=== PATIENT | female | born 1975 | race Caucasian/White ===

== ENCOUNTER → 2017-01-22 | Outpatient (CLI) | payer MEDICARE ==
--- NOTE | 2017-01-22 09:40 | REP ---
Chest two views HISTORY: Paresthesias Comparison: None The lungs are clear. The heart is normal in size. The pulmonary vasculature is normal in appearance. The bony structure is intact. IMPRESSION: No acute disease. Signed by Dominick Winn MD 01/22/2017 09:31 A
== END ==
LOC: M RAD 09:05
PROVIDERS: ATTEND Psychiatry & Neurology Neurology
DX: R20.2 Paresthesia of skin (principal)

== ENCOUNTER → 2017-02-24 | Outpatient (CLI) | payer MEDICARE ==
--- NOTE | 2017-02-24 16:15 | REP ---
LEFT UPPER EXTREMITY DUPLEX DOPPLER ARTERIAL ULTRASOUND: Real-time ultrasound evaluation and duplex Doppler interrogation of the left upper extremity arterial system is performed. Peak systolic velocity in the common carotid artery is 136 cm/s with normal wave form. Peak systolic velocity left vertebral artery 66 cm/s with normal wave form . Peak systolic velocity left subclavian artery 129 cm/s with normal wave form, with no significant change with the arm elevated. In the distal left subclavian artery peak systolic velocity 108 cm/s, decreases to 32 cm/s with the arm elevated. Left axillary peak systolic velocity 72 cm/s, decreases to 45 cm/s with the arm elevated. There are normal flow velocities in the left brachial, radial and ulnar arteries with triphasic wave forms noted except in the distal left radial artery which demonstrates monophasic wave form. There is no compelling duplex Doppler sonographic evidence of hemodynamically significant stenosis involving the left upper extremity. Arterial system however given the decrease in velocity in the distal left subclavian artery and axillary artery with the arm elevated, findings raise the possibility of thoracic outlet syndrome. Signed by Nir Carreno MD 02/24/2017 06:00 P
== END ==
LOC: M RAD 13:09
PROVIDERS: ATTEND Surgery Vascular Surgery
DX: I73.9 Peripheral vascular disease, unspecified (principal)

== ENCOUNTER → 2017-03-24 | Outpatient (CLI) | payer MEDICARE ==
[~2017-03-24] MED LIST: PROHANCE 279.3MG/ML 15ML VIAL (A9576) As Ordered
== END ==
LOC: M RAD 14:35
DX: M54.14 Radiculopathy, thoracic region (principal)
CPT/HCPCS: A9576

== ENCOUNTER 2017-04-29 08:02 | Inpatient (IN) | payer MEDICARE ==
[2017-04-29] MEDS ORDERED: LIDOCAINE 1% MDV 20ML VIAL SQ (08:30)
[2017-04-29 08:31] LABS: CONTROL LINE UCG INT CTR LINE PRESENT; URINE PREG TEST NEGATIVE (NEGATIVE)
[2017-04-29] MEDS ORDERED: ceFAZolin 2 GM/D5W 50 ML IV BAG (J0690 PER 500MG) As Ordered (08:51)
[2017-04-29] MEDS ORDERED: METOCLOPRAMIDE INJ 10MG/2ML VIAL (J2765) As Ordered ×2 (09:05→13:58)
[2017-04-29] MEDS ORDERED: LIDOCAINE 2% INJ 100 MG/5 ML SDV (FOR ANES.) As Ordered (09:05)
[2017-04-29] MEDS ORDERED: MIDAZOLAM INJ 2 MG/2 ML VIAL (J2250) As Ordered (09:05)
[2017-04-29] MEDS ORDERED: ROCURONIUM BROMIDE 50 MG/5 ML VIAL As Ordered (09:05)
[2017-04-29] MEDS ORDERED: ONDANSETRON 4MG/2ML VIAL (J2405) As Ordered ×2 (09:05→13:47)
[2017-04-29] MEDS ORDERED: PROPOFOL 200 MG/20 ML VIAL As Ordered (09:05)
[2017-04-29] MEDS ORDERED: fentaNYL 100 MCG/2 ML INJECTION (J3010) As Ordered ×2 (09:05→10:16)
[2017-04-29] MEDS: LR 1,000 ML IV ×2 (09:13→14:00)
[2017-04-29] MEDS: HEPARIN SOD (PORCINE) 5000 UNITS/ML VIAL As Ordered (10:17)
[2017-04-29] MEDS: THROMBIN SOLN 20,000 UNITS KIT As Ordered (11:00)
[2017-04-29] MEDS ORDERED: HEPARIN SOD (PORCINE) 5000 UNITS/ML VIAL As Ordered (11:18)
[2017-04-29] MEDS ORDERED: HYDROmorphone HCL 2 MG/ML 1ML VIAL (J1170) As Ordered (11:47)
[2017-04-29] MEDS: LIDOCAINE 1% SDV INJ 30 ML VIAL As Ordered (13:48)
[2017-04-29] MEDS: BUPIVACAINE HCL 0.25% 30 ML VIAL As Ordered (13:48)
[2017-04-29] MEDS: PROTAMINE SULF INJ 50 MG/5 ML VIAL (J2720) As Ordered (13:49)
[2017-04-29] MEDS ORDERED: HYDROmorphone HCL 1 MG/ML SYRINGE (J1170) IV (14:00)
[2017-04-29] MEDS ORDERED: PERCOCET 5MG/325MG TAB PO (14:00)
[2017-04-29] MEDS ORDERED: dexameTHASONE 4 MG/ML 1ML VIAL (J1100) As Ordered (14:00)
[2017-04-29] MEDS: ONDANSETRON 4MG/2ML VIAL (J2405) IV ×2 (14:00→17:59)
[2017-04-29] MEDS: METOCLOPRAMIDE INJ 10MG/2ML VIAL (J2765) IV (14:10)
[2017-04-29] MEDS ORDERED: MORPHINE 4 MG/ML 1ML VIAL (J2270) IV (14:15)
[2017-04-29] MEDS: fentaNYL 100 MCG/2 ML INJECTION (J3010) IV (14:20)
[2017-04-29] MEDS ORDERED: diphenhydrAMINE INJ 50MG/ML VIAL (J1200) IV (15:30)
[2017-04-29] MEDS: D5W/LR 1,000 ML IV ×2 (16:13→21:50)
[2017-04-29] MEDS: MORPHINE 4 MG/ML 1ML VIAL (J2270) IV (16:35)
[2017-04-29] MEDS: HEPARIN SOD (PORCINE) 5000 UNITS/ML VIAL SC (20:16)
[2017-04-29] MEDS: DOCUSATE SODIUM 100 MG CAP PO (20:17)
[2017-04-29] MEDS: SENOKOT S TAB PO (20:17)
[2017-04-29] MEDS: SCOPOLAMINE 1MG TRANSDERMAL PATCH TOP (20:17)
[2017-04-29] MEDS: NORCO, ANEXSIA 5/325MG TABLET (HYDROcodone/ACETAMINOPHEN) PO (21:51)
[2017-04-30] MEDS: NORCO, ANEXSIA 5/325MG TABLET (HYDROcodone/ACETAMINOPHEN) PO ×5 (03:33→23:24)
[2017-04-30] MEDS: D5W/LR 1,000 ML IV (06:33)
[2017-04-30] MEDS: HEPARIN SOD (PORCINE) 5000 UNITS/ML VIAL SC ×3 (06:33→21:01)
[2017-04-30] MEDS: DOCUSATE SODIUM 100 MG CAP PO ×2 (07:40→21:02)
[2017-04-30] MEDS: SENOKOT S TAB PO ×2 (07:42→21:01)
[2017-04-30 12:25] LABS: BASO % 0.2 % (0.0-1.0); EOS % 0.2 % (0.0-3.0); HEMATOCRIT 32.2 % (36.0-47.0); HEMOGLOBIN 10.9 g/dl (12.0-16.0); IMMATURE GRANULOCYTE % 0.3 % (0-3.0); LYMPH % 21.9 % (24.0-44.0); MEAN CORPUSCULAR HEMOGLOBIN 32.3 pg (27.0-33.0); MEAN CORPUSCULAR HGB CONC 33.9 g/dl (32.0-36.5); MEAN CORPUSCULAR VOLUME 95.5 fl (80.0-96.0); MONO % 10.8 % (0.0-5.0); NEUTROPHILS % 66.6 % (36.0-66.0); PLATELET COUNT, AUTOMATED 187 10^3/uL (150-450); RED BLOOD COUNT 3.37 10^6/uL (4.00-5.40); RED CELL DISTRIBUTION WIDTH 12.5 % (11.5-14.5); WHITE BLOOD COUNT 9.1 10^3/uL (4.0-10.0)
[2017-04-30 12:57] LABS: ANION GAP 6 MEQ/L (8-16); BLOOD UREA NITROGEN 6 MG/DL (7-18); CALCIUM LEVEL 8.5 MG/DL (8.5-10.1); CARBON DIOXIDE LEVEL 29 MEQ/L (21-32); CHLORIDE LEVEL 107 MEQ/L (98-107); GLOMERULAR FILTRATION RATE > 60.0 (>60); GLUCOSE, FASTING 79 MG/DL (70-100); POTASSIUM SERUM 3.7 MEQ/L (3.5-5.1); SODIUM LEVEL 142 MEQ/L (136-145)
[2017-04-30] MEDS: MOM 30ML SUSPENSION UDC PO (21:01)
[2017-05-01] MEDS: NORCO, ANEXSIA 5/325MG TABLET (HYDROcodone/ACETAMINOPHEN) PO ×5 (03:27→23:24)
[2017-05-01] MEDS: HEPARIN SOD (PORCINE) 5000 UNITS/ML VIAL SC ×3 (05:33→21:17)
[2017-05-01] MEDS: ONDANSETRON 4MG/2ML VIAL (J2405) IV ×2 (05:33→05:37)
[2017-05-01] MEDS: ONDANSETRON 4 MG ORAL DISINTEGRATING TAB (S0181) PO (06:12)
[2017-05-01] MEDS: SENOKOT S TAB PO ×2 (08:44→21:17)
[2017-05-01] MEDS: DOCUSATE SODIUM 100 MG CAP PO ×2 (08:44→21:17)
[2017-05-01] MEDS: METAMUCIL (PSYLLIUM) PACKET PO (09:39)
[2017-05-01] MEDS: guaiFENesin ER 600 MG TAB PO ×2 (12:36→21:17)
[2017-05-02] MEDS: MOM 30ML SUSPENSION UDC PO (02:03)
[2017-05-02] MEDS: BISACODYL 10 MG SUPP PR (02:56)
[2017-05-02] MEDS: HEPARIN SOD (PORCINE) 5000 UNITS/ML VIAL SC ×3 (05:33→21:20)
[2017-05-02] MEDS: NORCO, ANEXSIA 5/325MG TABLET (HYDROcodone/ACETAMINOPHEN) PO ×3 (07:21→18:55)
[2017-05-02] MEDS: guaiFENesin ER 600 MG TAB PO ×2 (07:22→21:19)
[2017-05-02] MEDS: DOCUSATE SODIUM 100 MG CAP PO ×2 (07:22→21:20)
[2017-05-02] MEDS: SENOKOT S TAB PO ×2 (07:22→21:20)
[2017-05-02] MEDS: SCOPOLAMINE 1MG TRANSDERMAL PATCH TOP (21:21)
[2017-05-03] MEDS: NORCO, ANEXSIA 5/325MG TABLET (HYDROcodone/ACETAMINOPHEN) PO ×5 (00:46→23:15)
[2017-05-03] MEDS: HEPARIN SOD (PORCINE) 5000 UNITS/ML VIAL SC ×3 (05:10→21:35)
[2017-05-03] MEDS: DOCUSATE SODIUM 100 MG CAP PO ×2 (08:16→21:32)
[2017-05-03] MEDS: guaiFENesin ER 600 MG TAB PO ×2 (08:16→21:32)
[2017-05-03] MEDS: SENOKOT S TAB PO ×2 (08:16→21:32)
[2017-05-03] MEDS: METAMUCIL (PSYLLIUM) PACKET PO (13:51)
[2017-05-04] MEDS: HEPARIN SOD (PORCINE) 5000 UNITS/ML VIAL SC ×3 (05:18→21:43)
[2017-05-04] MEDS: NORCO, ANEXSIA 5/325MG TABLET (HYDROcodone/ACETAMINOPHEN) PO ×4 (05:20→21:44)
[2017-05-04] MEDS: SENOKOT S TAB PO (09:44)
[2017-05-04] MEDS: DOCUSATE SODIUM 100 MG CAP PO (09:44)
[2017-05-04] MEDS: guaiFENesin ER 600 MG TAB PO ×2 (09:44→21:43)
[2017-05-04] MEDS: METAMUCIL (PSYLLIUM) PACKET PO (11:05)
[2017-05-05] MEDS: NORCO, ANEXSIA 5/325MG TABLET (HYDROcodone/ACETAMINOPHEN) PO ×3 (02:31→15:15)
[2017-05-05] MEDS: HEPARIN SOD (PORCINE) 5000 UNITS/ML VIAL SC ×2 (06:35→14:41)
[2017-05-05] MEDS: ONDANSETRON 4 MG ORAL DISINTEGRATING TAB (S0181) PO ×2 (08:13→15:52)
[2017-05-05] MEDS: guaiFENesin ER 600 MG TAB PO (08:13)
[2017-05-05] MEDS: METAMUCIL (PSYLLIUM) PACKET PO (08:13)
[2017-05-05] MEDS: MOM 30ML SUSPENSION UDC PO (08:14)
[2017-05-05] MEDS: BISACODYL 10 MG SUPP PR (14:40)
== END 2017-05-05 19:50 | disposition home or self-care (01) | DRG 30 ==
LOC: M OR 08:02 → M MSPAV 16:17
PROC: 0PT10ZZ Resection of 1 to 2 Ribs, Open Approach (ICD-10-PCS; principal; 2017-04-29 09:26)
DX: G54.0 Brachial plexus disorders (principal); Z87.891 Personal history of nicotine dependence

== ENCOUNTER 2018-03-28 18:05 | Emergency (ER) | payer MEDICARE ==
[~2018-03-28] VITALS: Ht 170.2 cm; Wt 74.1 kg
[~2018-03-28 18:05] MED LIST changes: +GABA PO; +MAGN500T2 PO; +NORCOTAB PO; +ONDA4TAB6 PO; -PROHANCE 279.3MG/ML 15ML VIAL (A9576) As Ordered
[2018-03-28 18:42] LABS: BASO % 0.4 % (0.0-1.0); EOS # 0.1 10^3/uL (0.0-0.50); HEMATOCRIT 43.5 % (36.0-47.0); HEMOGLOBIN 14.5 g/dl (12.0-15.5); LYMPH % 24.2 % (24.0-44.0); MEAN CORPUSCULAR HEMOGLOBIN 32.5 pg (27.0-33.0); MEAN CORPUSCULAR HGB CONC 33.3 g/dl (32.0-36.5); MEAN CORPUSCULAR VOLUME 97.5 fl (80.0-96.0); MONO # 0.5 10^3/uL (0.0-0.8); MONO % 6.6 % (0.0-5.0); NEUTROPHILS # 5.5 10^3/uL (1.8-7.7); NEUTROPHILS % 67.4 % (36.0-66.0); PLATELET COUNT, AUTOMATED 268 10^3/uL (150-450); RED BLOOD COUNT 4.46 10^6/uL (4.00-5.40); WHITE BLOOD COUNT 8.2 10^3/uL (4.0-10.0)
[2018-03-28 18:56] LABS: HCG, SERUM QUALITATIVE NEGATIVE (NEGATIVE)
[2018-03-28 19:05] LABS: ALBUMIN 4.1 GM/DL (3.2-5.2); ALT/SGPT 21 U/L (12-78); AMYLASE 34 U/L (25-115); BILIRUBIN,DIRECT 0.1 MG/DL (0.0-0.2); BILIRUBIN,TOTAL 0.4 MG/DL (0.2-1.0); BLOOD UREA NITROGEN 12 MG/DL (7-18); CALCIUM LEVEL 9.4 MG/DL (8.5-10.1); CARBON DIOXIDE LEVEL 26 MEQ/L (21-32); CHLORIDE LEVEL 105 MEQ/L (98-107); CREATININE FOR GFR 0.87 MG/DL (0.55-1.30); GLOMERULAR FILTRATION RATE > 60.0 (>58); GLUCOSE, FASTING 96 MG/DL (70-100); LIPASE 103 U/L (73-393); POTASSIUM SERUM 4.3 MEQ/L (3.5-5.1); SODIUM LEVEL 139 MEQ/L (136-145); TOTAL PROTEIN 7.5 GM/DL (6.4-8.2)
[2018-03-28] MEDS ORDERED: NS 1,000 ML IV ONE (19:15)
[2018-03-28] MEDS ORDERED: PANTOPRAZOLE 40MG INJ (PROTONIX) (C9113) IV ONE (19:15)
[2018-03-28] MEDS ORDERED: GI COCKTAIL 50ML BTL(HYOSCYAMINE/MAALOX/LIDOCAINE VISCOUS)(1:3:1) PO ONE (19:15)
[2018-03-28] MEDS ORDERED: ONDANSETRON 4MG/2ML VIAL (J2405) IV ONE (19:15)
--- NOTE | 2018-03-28 20:18 | REPVR ---
EXAM: US Pelvis Complete, Transabdominal EXAM DATE/TIME: 03/28/2018 7:54 PM CLINICAL HISTORY: 42 years old, female; Pain; Pelvic pain; Additional info: Llq pain TECHNIQUE: Real-time transabdominal pelvic ultrasound with image documentation. Complete exam. COMPARISON: CT ABD PELVIS WITH CONTRAST 08/16/2013 8:20 PM FINDINGS: Uterus/cervix: The uterus measures 11.5 CM in length by 5.6 CM AP dimension by 7.5 CM in transverse dimension. The uterus is markedly retroverted. Normal appearing endometrium. There is a 2.2 CM fibroid left side of the uterus. Right adnexa: The right ovary measures 1.8 CM in length by 1.3 CM thickness. There is vascular flow the right ovary with no evidence of torsion. Left adnexa: There is a 1.8 CM clear cyst left ovary. There is vascular flow of the left ovary with no evidence of torsion. The left ovary measures 4.3 cm x 2 CM in thickness. Free fluid: There is no evidence of free fluid in the pelvis. Bladder: The urinary bladder is empty and cannot be completely evaluated. IMPRESSION: 1. Severely retroverted uterus. 2. 1.8 CM clear cyst left ovary. No evidence of torsion. Electronically signed by: Emanuel Hawley On 03/28/2018 20:18:33 PM
[2018-03-28] MEDS ORDERED: KETOROLAC 30 MG/ML VIAL (J1885) IV ONE (20:45)
[2018-03-28] MEDS ORDERED: RANI15TA PO (21:01)
[2018-03-28 21:11] VITALS: BP 129/89
== END 2018-03-28 21:20 | disposition home or self-care (01) ==
LOC: M ED 18:05
DX: R10.13 Epigastric pain (principal); N83.202 Unspecified ovarian cyst, left side; R11.0 Nausea; Z91.048 Other nonmedicinal substance allergy status; Z88.8 Allergy status to other drugs, medicaments and biological substances
CPT/HCPCS: 76830; 76856; 80048; 80076; 81001; 82150; 83690; 84703; 85025; 93976; 96361; 96374; 96375; 99284; C9113; J1885; J2405

== ENCOUNTER → 2018-04-14 | Outpatient (REF) | payer MEDICARE ==
[~2018-04-14] MED LIST changes: +HYOS1TAB PO; +IBUP1TAB7 PO; +MAGN200T PO; +OMEP40CA2 PO; +PERCOCET PO; +PROT1TAB2 PO; +RANI15TA PO; +VITA100072 PO; +VITA200016 PO
== END ==
LOC: M LAB REF 15:50
PROVIDERS: ATTEND Physician Assistant
DX: D24.1 Benign neoplasm of right breast (principal)

== ENCOUNTER → 2018-05-11 | Outpatient (CLI) | payer MEDICARE ==
[~2018-05-11] MED LIST changes: +GASTROGRAFIN SOLUTION 30ML (Q9963) As Ordered ONE; -HYOS1TAB PO; -IBUP1TAB7 PO; +ISOVUE-370 76% 100ML VIAL (Q9967) As Ordered ONE; -MAGN200T PO; -OMEP40CA2 PO; -PERCOCET PO; -PROT1TAB2 PO; -VITA100072 PO; -VITA200016 PO
--- NOTE | 2018-05-11 17:29 | REP ---
CT ABDOMEN AND PELVIS WITH ORAL AND IV CONTRAST: TECHNIQUE: Axial contrast enhanced images from the lung bases to the pubic symphysis using 100 mL Isovue 370 intravenous contrast material with multiplanar reformations. Visualized lungs bases are clear. Liver demonstrates a few small subcentimeter cysts with no other significant abnormality. The gallbladder is grossly unremarkable. Spleen, adrenals, pancreas and kidneys appear unremarkable. There is no abdominal aortic aneurysm and there is no adenopathy. There is no free air or free fluid. No bowel wall thickening is seen. The appendix is normal. The uterus appears somewhat enlarged. It is retroverted. There is an anterior fibroid 2 cm in diameter. No other pelvic mass is seen. Urinary bladder is not well distended and not well evaluated. No anterior abdominal wall defect is seen. The visualized osseous structures appear unremarkable. IMPRESSION: A few small liver cysts. Somewhat enlarged uterus with an anterior uterine fibroid 2 cm in diameter. Uterus is retroverted. No evidence of abdominal or pelvic mass. No free air or free fluid. Electronically Signed by Nir Carreno MD 05/12/2018 10:28 A
== END ==
LOC: M RAD 08:39
PROVIDERS: ATTEND Internal Medicine Gastroenterology
DX: R10.30 Lower abdominal pain, unspecified (principal); K76.89 Other specified diseases of liver; D25.9 Leiomyoma of uterus, unspecified; N85.4 Malposition of uterus; N85.2 Hypertrophy of uterus
CPT/HCPCS: 74177; Q9963; Q9967

== ENCOUNTER 2018-05-22 19:42 | Emergency (ER) | payer MEDICARE ==
[~2018-05-22] VITALS: Ht 170.2 cm; Wt 72.7 kg
[~2018-05-22 19:42] MED LIST changes: -GASTROGRAFIN SOLUTION 30ML (Q9963) As Ordered ONE; -ISOVUE-370 76% 100ML VIAL (Q9967) As Ordered ONE; +OMEP40CA2 PO; +VITA100072 PO; +VITA200016 PO
[2018-05-22] MEDS ORDERED: ONDANSETRON 4MG/2ML VIAL (J2405) IV ONE (20:15)
[2018-05-22] MEDS ORDERED: NS 1,000 ML IV ONE (20:15)
[2018-05-22] MEDS: MORPHINE 4 MG/ML 1ML VIAL/SYRINGE (J2270) IV PRN ×2 (20:21→22:00)
--- NOTE | 2018-05-22 20:56 | ECGEPIP ---
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
[2018-05-22 21:14] LABS: BASO % 0.6 % (0.0-1.0); EOS # 0.1 10^3/uL (0.0-0.50); EOS % 1.2 % (0.0-3.0); HEMATOCRIT 40.3 % (36.0-47.0); HEMOGLOBIN 13.5 g/dl (12.0-15.5); LYMPH # 2.7 10^3/uL (1.5-4.5); LYMPH % 40.9 % (24.0-44.0); MEAN CORPUSCULAR HEMOGLOBIN 32.1 pg (27.0-33.0); MEAN CORPUSCULAR HGB CONC 33.5 g/dl (32.0-36.5); MEAN CORPUSCULAR VOLUME 95.7 fl (80.0-96.0); MONO # 0.5 10^3/uL (0.0-0.8); MONO % 7.8 % (0.0-5.0); NEUTROPHILS # 3.2 10^3/uL (1.8-7.7); NEUTROPHILS % 49.5 % (36.0-66.0); PLATELET COUNT, AUTOMATED 280 10^3/uL (150-450); RED BLOOD COUNT 4.21 10^6/uL (4.00-5.40); WHITE BLOOD COUNT 6.5 10^3/uL (4.0-10.0)
[2018-05-22 21:33] LABS: HCG, SERUM QUALITATIVE NEGATIVE (NEGATIVE)
[2018-05-22 21:38] LABS: ALBUMIN 4.3 GM/DL (3.2-5.2); ALT/SGPT 25 U/L (12-78); BILIRUBIN,DIRECT 0.2 MG/DL (0.0-0.2); BILIRUBIN,TOTAL 0.6 MG/DL (0.2-1.0); BLOOD UREA NITROGEN 6 MG/DL (7-18); CARBON DIOXIDE LEVEL 27 MEQ/L (21-32); CHLORIDE LEVEL 106 MEQ/L (98-107); CPK CREATINE PHOSPHOKINASE 129 U/L (26-192); CREATININE FOR GFR 0.88 MG/DL (0.55-1.30); GLOMERULAR FILTRATION RATE > 60.0 (>58); GLUCOSE, FASTING 87 MG/DL (70-100); LIPASE 113 U/L (73-393); MB/CK RELATIVE INDEX 1.32 (< OR =4); POTASSIUM SERUM 4.1 MEQ/L (3.5-5.1); SODIUM LEVEL 139 MEQ/L (136-145); TOTAL PROTEIN 7.4 GM/DL (6.4-8.2); TROPONIN I < 0.02 NG/ML (< 0.10)
[2018-05-22] MEDS ORDERED: ISOVUE-370 76% 125ML VIAL (Q9967 PER ML) As Ordered ONE (21:53)
--- NOTE | 2018-05-22 23:11 | REPVR ---
EXAM: CT Angiography Chest With Contrast EXAM DATE/TIME: 05/22/2018 10:19 PM CLINICAL HISTORY: 43 years old, female; Pain; Other: Epigastric radiating to the chest; Additional info: Epigastric pain into chest TECHNIQUE: Axial computed tomographic angiography images of the chest with intravenous contrast using CT angiography protocol. All CT scans at this facility use at least one of these dose optimization techniques: automated exposure control; mA and/or kV adjustment per patient size (includes targeted exams where dose is matched to clinical indication); or iterative reconstruction. Coronal and sagittal reformatted images were created and reviewed. MIP reconstructed images were created and reviewed. CONTRAST: Contrast Material: 100 ml of ISOVUE 370; Contrast Route: IV COMPARISON: No relevant prior studies available. FINDINGS: Pulmonary arteries: There is opacification of the pulmonary arteries with no evidence of pulmonary embolus. Aorta: There is opacification of the aorta which appears intact. Lungs: Clear lungs. Pleural space: No pneumothorax. Heart: Normal size heart. Lymph nodes: There is no evidence of lymphadenopathy. Bones/joints: Unremarkable. No acute fracture. Soft tissues: Unremarkable. IMPRESSION: No evidence of pulmonary embolus. Electronically signed by: Emanuel Hawley On 05/22/2018 23:10:28 PM
--- NOTE | 2018-05-22 23:19 | REPVR ---
EXAM: CT Abdomen and Pelvis With Contrast EXAM DATE/TIME: 05/22/2018 10:19 PM CLINICAL HISTORY: 43 years old, female; Pain; Abdominal pain; Epigastric; Additional info: Epigastric pain into chest TECHNIQUE: Axial computed tomography images of the abdomen and pelvis with intravenous contrast. CONTRAST: Contrast Material: 100 ml of ISOVUE 370; Contrast Route: IV COMPARISON: CT ABD PELVIS WITH CONTRAST 05/11/2018 10:32 AM FINDINGS: ABDOMEN: Liver: Small cysts of the right lobe of the liver. Gallbladder and bile ducts: Normal gallbladder. Normal common bile duct. Pancreas: Normal pancreas. Spleen: Normal spleen. Adrenals: Normal adrenal glands. Kidneys and ureters: There is opacification of the right and left kidney. There is no evidence of obstruction of the right or left ureter. Stomach and bowel: Normal-appearing small bowel. Appendix: Normal appendix. PELVIS: Bladder: Normal urinary bladder. Reproductive: The uterus is retroverted. There is mild thickening of the endometrium consistent with secretory type endometrium. Follicular cysts in both ovaries. ABDOMEN and PELVIS: Intraperitoneal space: There is no evidence of free fluid in the abdomen or pelvis. Bones/joints: No acute fracture. No dislocation. Soft tissues: Unremarkable. Vasculature: There is opacification of the aorta which appears intact. Lymph nodes: There is no evidence of lymphadenopathy. IMPRESSION: 1. No evidence of bowel obstruction. 2. No evidence of inflammation. Electronically signed by: Emanuel Hawley On 05/22/2018 23:18:50 PM
[2018-05-22] MEDS ORDERED: GI COCKTAIL 50ML BTL(HYOSCYAMINE/MAALOX/LIDOCAINE VISCOUS)(1:3:1) PO ONE (23:45)
[2018-05-23] MEDS ORDERED: HYOS1TAB PO (00:21)
[2018-05-23] MEDS ORDERED: PROT1TAB2 PO (00:21)
[2018-05-23 00:30] VITALS: BP 108/72
[2018-05-23] MEDS ORDERED: PANTOPRAZOLE 40MG INJ (PROTONIX) (C9113) IV ONE (00:30)
[2018-05-27] MEDS ORDERED: PERCOCET PO (10:10)
== END 2018-05-23 01:03 | disposition home or self-care (01) ==
LOC: M ED 19:42
DX: R10.13 Epigastric pain (principal)
CPT/HCPCS: 71275; 74177; 80048; 80076; 82550; 82553; 83690; 84484; 84703; 85025; 93005; 93041; 94760; 96361; 96374; 96375; 99285; C9113; J2270; J2405; Q9967

== ENCOUNTER 2018-05-27 05:54 | Day surgery (SDC) | payer MEDICARE ==
[~2018-05-27] VITALS: Ht 172.7 cm; Wt 69.0 kg
[~2018-05-27 05:54] MED LIST changes: +HYOS1TAB PO; +PROT1TAB2 PO
[2018-05-27 06:29] LABS: MEAN CORPUSCULAR HEMOGLOBIN 32.5 pg (27.0-33.0); MEAN CORPUSCULAR HGB CONC 33.3 g/dl (32.0-36.5); MEAN CORPUSCULAR VOLUME 97.4 fl (80.0-96.0); PLATELET COUNT, AUTOMATED 256 10^3/uL (150-450); RED BLOOD COUNT 4.62 10^6/uL (4.00-5.40); WHITE BLOOD COUNT 4.7 10^3/uL (4.0-10.0)
[2018-05-27] MEDS ORDERED: ACETAMINOPHEN 650 MG SUPP PR ONE (06:30)
[2018-05-27] MEDS ORDERED: LR 1,000 ML IV SCH ×3 (06:30→10:00)
[2018-05-27 06:45] LABS: URINE PREG TEST NEGATIVE (NEGATIVE)
[2018-05-27] MEDS ORDERED: MAGN200T PO (06:50)
[2018-05-27 06:54] LABS: BLOOD UREA NITROGEN 7 MG/DL (7-18); CALCIUM LEVEL 9.2 MG/DL (8.5-10.1); CARBON DIOXIDE LEVEL 26 MEQ/L (21-32); CHLORIDE LEVEL 105 MEQ/L (98-107); CREATININE FOR GFR 0.97 MG/DL (0.55-1.30); GLOMERULAR FILTRATION RATE > 60.0 (>58); GLUCOSE, FASTING 92 MG/DL (70-100); POTASSIUM SERUM 3.9 MEQ/L (3.5-5.1); SODIUM LEVEL 138 MEQ/L (136-145)
[2018-05-27] MEDS ORDERED: FLUORESCEIN 10% (100MG/ML) 5 ML VIAL As Ordered ONE (07:11)
[2018-05-27] MEDS ORDERED: ACETAMINOPHEN 650 MG SUPP As Ordered ONE (07:11)
[2018-05-27] MEDS ORDERED: BUPIVACAINE/EPIN 0.25% 30 ML VIAL As Ordered ONE (07:11)
[2018-05-27] MEDS ORDERED: SCOPOLAMINE 1MG TRANSDERMAL PATCH As Ordered ONE (07:18)
[2018-05-27] MEDS ORDERED: LR 1,000 ML IV ONE (07:45)
[2018-05-27] MEDS ORDERED: SCOPOLAMINE 1MG TRANSDERMAL PATCH TOP ONE (07:45)
[2018-05-27] MEDS ORDERED: LIDOCAINE 2% INJ 100 MG/5 ML SDV (FOR ANES.) As Ordered ONE (08:24)
[2018-05-27] MEDS ORDERED: ROCURONIUM BROMIDE 50 MG/5 ML VIAL As Ordered ONE (08:24)
[2018-05-27] MEDS ORDERED: PROPOFOL 200 MG/20 ML VIAL As Ordered ONE (08:24)
[2018-05-27] MEDS ORDERED: HYDROmorphone HCL 2 MG/ML 1ML VIAL (J1170) As Ordered ONE (08:24)
[2018-05-27] MEDS ORDERED: GLYCOPYRROLATE INJ 0.2 MG/ML 2 ML VIAL As Ordered ONE (08:24)
[2018-05-27] MEDS ORDERED: ACETAMINOPHEN 1000MG 100ML IV BTL (OFIRMEV) (J0131 PER 10MG) As Ordered ONE (08:24)
[2018-05-27] MEDS ORDERED: MIDAZOLAM INJ 2 MG/2 ML VIAL (J2250) As Ordered ONE (08:24)
[2018-05-27] MEDS ORDERED: ONDANSETRON 4MG/2ML VIAL (J2405) As Ordered ONE (08:24)
[2018-05-27] MEDS ORDERED: KETOROLAC 60 MG/2 ML VIAL (J1885) As Ordered ONE (08:24)
[2018-05-27] MEDS ORDERED: dexameTHASONE 4 MG/ML 1ML VIAL (J1100) As Ordered ONE (08:24)
[2018-05-27] MEDS ORDERED: fentaNYL 250 MCG/5 ML INJECTION (J3010) As Ordered ONE (08:24)
[2018-05-27] MEDS ORDERED: SUGAMMADEX SODIUM 500 MG/5 ML VIAL (BRIDION) As Ordered ONE (08:24)
[2018-05-27] MEDS ORDERED: ePHEDrine SULFATE 25 MG/5 ML(5MG/ML) SYRINGE As Ordered ONE (08:41)
[2018-05-27] MEDS ORDERED: METOCLOPRAMIDE INJ 10MG/2ML VIAL (J2765) IV PRN (09:45)
[2018-05-27] MEDS ORDERED: oxyCODONE 5MG TAB PO PRN (09:45)
[2018-05-27] MEDS ORDERED: fentaNYL 100 MCG/2 ML INJECTION (J3010) IV PRN (09:45)
[2018-05-27] MEDS ORDERED: ONDANSETRON 4MG/2ML VIAL (J2405) IV PRN (09:45)
[2018-05-27] MEDS ORDERED: MEPERIDINE INJ 25 MG/ML VIAL (J2175) IV PRN (09:45)
[2018-05-27] MEDS ORDERED: SIMETHICONE 80 MG CHEW TAB PO SCH (10:00)
[2018-05-27] MEDS ORDERED: PERCOCET 5MG/325MG TAB PO PRN (10:00)
[2018-05-27] MEDS ORDERED: IBUP1TAB7 PO (10:10)
[2018-05-27] MEDS ORDERED: PERCOCET PO (10:10)
[2018-05-27 10:30] VITALS: BP 117/77
[2018-05-27 11:00] VITALS: BP 124/74
--- NOTE | 2018-05-27 11:01 | RO ---
DATE OF PROCEDURE: 05/27/2018 Yanira is a 43-year-old female with an extensive history of chronic pelvic pain, fibroid uterus, left ovarian cyst and a history of two prior sections. After counseling in the office a decision was made to proceed with robotic-assisted laparoscopic hysterectomy, removal of both tubes, possible cystoscopy. PREOPERATIVE DIAGNOSES: 1. Chronic pelvic pain. 2. Left ovarian cyst. 3. Fibroid uterus. 4. History of two prior sections. POSTOPERATIVE DIAGNOSES: 1. Chronic pelvic pain. 2. Left ovarian cyst. 3. Fibroid uterus. 4. History of two prior sections. PROCEDURES: 1. Robotic-assisted total hysterectomy. 2. Removal of both tubes. 3. Cystoscopy. SURGEON: Oliverio Esteban DO FIELD SUPERVISOR SEED PRODUCTION: NELSON Allred ANESTHESIA: General. COMPLICATIONS: None. ESTIMATED BLOOD LOSS: Less than 50 mL. SPECIMENS SENT TO THE LAB: The uterus, the tubes and the ovaries. FINDINGS: A mildly enlarged uterus with normal-appearing tubes and ovaries. PROCEDURE: After obtaining informed consent, the patient was taken to the operating room where general anesthetic was found to be adequate. She was then draped and prepped usual sterile fashion in dorsal lithotomy position. At this point, a HUMI-2 uterine manipulator was placed. We then turned our attention to the abdomen where the abdomen was insufflated with CO2 gas via the Veress needle. We then made an 8 mm port at the umbilicus and a trocar was inserted under direct visualization. At this point we placed two left ports, one for the assist and the furthest lateral an 8 mm port for robotic arm one. On the right side robotic arm two, an 8 mm port was also placed. After placing these ports the robot was brought to the patient's side. The camera was then docked after performing the targeting process. We then docked robotic arm one and two. A vessel sealer was placed in robotic arm two and a bipolar grasper on robotic arm one. I then unscrubbed and went to the surgeon console. The pelvis as well as the abdomen was inspected. The uterus was found to be normal in size. At this point the fallopian tube was identified and the mesosalpinx was transected all the way down to the utero-ovarian ligament using the vessel sealer with a series of coag and cut. At this point, the utero-ovarian ligament was also cauterized and cut using the vessel sealer. The round ligament cauterized and cut in a similar fashion. The uterine arteries were skeletonized and then cauterized and cut using the vessel sealer. At this point the anterior uterovesical fascia was dissected to create a bladder flap. The posterior was done in a similar fashion. We then turned our attention to the opposite side which was done in a similar fashion. After completing the bladder flap and securing the uterine arteries with the vessel sealer, the vessel sealer was then removed, Endo shear was placed and a colpotomy me was then performed, both anteriorly and posteriorly. At this point, the uterus and bilateral fallopian tubes were removed through the vagina. A moistened sponge lap was placed in the vagina to maintain pneumoperitoneum and 1 mL of Furacin was given by the anesthesiologist to help with the cystoscopy. At this point, the Endo shear was removed, a needle drive away driver was introduced as well as a #2-0 V-Loc suture and the vaginal cuff was closed in a running fashion using the #2-0 V-Loc suture. The peritoneum over the vaginal cuff was also closed. Good hemostasis noted. Pelvis copiously irrigated with normal saline and suctioned out. I then rescrubbed and went to the patient's side, retrograde filled the bladder with 230 mL of normal saline. A cystoscopy was performed. Bilateral urethral jets were noted with yellow dye coming out of the ureters. No evidence of any bladder injury noted. At this point the cystoscope was removed. Oneill catheter placed back in the bladder. I then turned my attention to the abdomen where the trocar sites were then closed using #3-0 Vicryl in a subcuticular fashion. 0.25% Marcaine placed. The patient tolerated the procedure well. She was then transferred to the recovery room in stable condition.
[2018-05-27 12:00] VITALS: BP 118/74
[2018-05-27 13:00] VITALS: BP 141/90
[2018-05-27 14:00] VITALS: BP_SYST 123; BP_SYST 125; BP_DIAS 65; BP_DIAS 67
[2018-05-27] MEDS ORDERED: IBUPROFEN 800 MG TAB PO SCH (15:00)
== END 2018-05-27 16:05 | disposition home or self-care (01) ==
LOC: M SDC 05:54 → M PED 10:20 → M SDC 16:05
PROVIDERS: ATTEND Obstetrics & Gynecology
DX: N83.202 Unspecified ovarian cyst, left side (principal); N85.8 Other specified noninflammatory disorders of uterus; N72 Inflammatory disease of cervix uteri; R10.2 Pelvic and perineal pain; M12.9 Arthropathy, unspecified; G43.909 Migraine, unspecified, not intractable, without status migrainosus; Z88.8 Allergy status to other drugs, medicaments and biological substances; Z91.048 Other nonmedicinal substance allergy status; Z87.891 Personal history of nicotine dependence; Z87.81 Personal history of (healed) traumatic fracture; Z87.820 Personal history of traumatic brain injury
CPT/HCPCS: 36415; 58571; 80048; 84703; 85027; 86850; 86900; 86901; 88307; J0131; J0690; J1100; J1170; J1885; J2250; J2405; J3010

== ENCOUNTER 2018-12-08 09:55 | Day surgery (SDC) | payer MEDICARE ==
[~2018-12-08] VITALS: Ht 170.2 cm; Wt 64.4 kg
[~2018-12-08 09:55] MED LIST changes: +HYDR-3715 PO; +IBUP1TAB7 PO; +MAGN200T PO; -NORCOTAB PO; +NS 1,000 ML IV ONE; -OMEP40CA2 PO; +OMEP40CA97 PO; +PERCOCET PO; +VITA100018 PO; -VITA100072 PO; +[UNRECOGNIZED DRUG - OTHER] PO
[2018-12-08] MEDS ORDERED: propofoL 200 MG/20 ML VIAL As Ordered ONE ×2 (11:20→13:02)
[2018-12-08] MEDS ORDERED: LIDOCAINE 2% INJ 100 MG/5 ML SDV (FOR ANES.) As Ordered ONE ×2 (11:20→13:02)
[2018-12-08] MEDS ORDERED: SCOPOLAMINE 1MG TRANSDERMAL PATCH TOP ONE (12:00)
--- NOTE | 2018-12-08 12:50 | ROOR ---
Patient Name: Yanira Hutchinson Procedure Date: 12/08/2018 12:31 PM Date of : 1975 Age: 43 Room: [facility] Gender: Female Note Status: Finalized Procedure: Upper Endoscopy + Biopsies Indications: Epigastric abdominal pain Providers: Carter Cerda MD Referring MD: Travis Posada Requesting Provider: Medicines: Monitored Anesthesia Care Complications: No immediate complications. Procedure: Pre-Anesthesia Assessment: - The heart rate, respiratory rate, oxygen saturations, blood pressure, adequacy of pulmonary ventilation, and response to care were monitored throughout the procedure. The Endoscope was introduced through the mouth, and advanced to the second part of duodenum. The upper GI endoscopy was accomplished without difficulty. The patient tolerated the procedure well. Findings: The Z-line was variable and was found 40 cm from the incisors. Multiple biopsies were obtained with cold forceps for evaluation to rule out Strong's Esophagus randomly at the gastroesophageal junction. No other significant abnormalities were identified in a careful examination of the stomach. Biopsies were taken with a cold forceps in the gastric antrum for Helicobacter pylori testing. The exam of the duodenum was otherwise normal. Impression: - Z-line variable, 40 cm from the incisors. - Multiple biopsies were obtained at the gastroesophageal junction. - Biopsies were taken with a cold forceps for Helicobacter pylori testing. - The examination was otherwise normal. Recommendation: - Patient has a contact number available for emergencies. The signs and symptoms of potential delayed complications were discussed with the patient. Return to normal activities tomorrow. Written discharge instructions were provided to the patient. - High fiber diet. - Discharge patient to home. - Follow an antireflux regimen. - Continue present medications. - Await pathology results. - Telephone GI clinic for pathology results in 1 week. - Return to referring physician. - The findings and recommendations were discussed with the patient's family. Carter Cerda MD Carter Cerda MD 12/08/2018 12:50:15 PM Electronically signed by Carter Cerda MD Number of Addenda: 0 Note Initiated On: 12/08/2018 12:31 PM Estimated Blood Loss: Estimated blood loss: none.
--- NOTE | 2018-12-08 13:04 | ROOR ---
Patient Name: Yanira Hutchinson Procedure Date: 12/08/2018 12:32 PM Date of : 1975 Age: 43 Room: [facility] Gender: Female Note Status: Finalized Procedure: Total Colonoscopy to Cecum + ileoscopy Indications: Change in bowel habits Providers: Carter eCrda MD Referring MD: Travis Posada Requesting Provider: Medicines: Monitored Anesthesia Care Complications: No immediate complications. Procedure: Pre-Anesthesia Assessment: - The heart rate, respiratory rate, oxygen saturations, blood pressure, adequacy of pulmonary ventilation, and response to care were monitored throughout the procedure. The Colonoscope was introduced through the anus and advanced to the cecum, identified by appendiceal orifice and ileocecal valve. The colonoscopy was performed without difficulty. The patient tolerated the procedure well. The quality of the bowel preparation was excellent. Findings: The perianal and digital rectal examinations were normal. No other significant abnormalities were identified in a careful examination of the remainder of the colon. The terminal ileum appeared normal. The exam was otherwise without abnormality. Non-bleeding internal hemorrhoids were found during retroflexion. The hemorrhoids were small and Grade I (internal hemorrhoids that do not prolapse). Impression: - The examined portion of the ileum was normal. - The examination was otherwise normal. - Non-bleeding internal hemorrhoids. - No specimens collected. - The exam was otherwise normal to the cecum. Recommendation: - Patient has a contact number available for emergencies. The signs and symptoms of potential delayed complications were discussed with the patient. Return to normal activities tomorrow. Written discharge instructions were provided to the patient. - High fiber diet. - Discharge patient to home. - Continue present medications. - Repeat colonoscopy in 10 years for screening purposes. - Return to referring physician. - The findings and recommendations were discussed with the patient's family. Carter Cerda MD Carter Cerda MD 12/08/2018 1:03:57 PM Electronically signed by Carter Cerda MD Number of Addenda: 0 Note Initiated On: 12/08/2018 12:32 PM Estimated Blood Loss: Estimated blood loss: none.
[2018-12-08 13:32] VITALS: BP 116/80
== END 2018-12-08 13:34 | disposition home or self-care (01) ==
LOC: M OPP 09:55
PROVIDERS: ATTEND Internal Medicine Gastroenterology
DX: R19.4 Change in bowel habit (principal); K64.0 First degree hemorrhoids; R10.13 Epigastric pain; K22.8 Other specified diseases of esophagus; K76.9 Liver disease, unspecified; M19.90 Unspecified osteoarthritis, unspecified site; M54.2 Cervicalgia; G43.909 Migraine, unspecified, not intractable, without status migrainosus; G62.9 Polyneuropathy, unspecified; F43.10 Post-traumatic stress disorder, unspecified; Z98.1 Arthrodesis status; Z91.040 Latex allergy status; Z88.8 Allergy status to other drugs, medicaments and biological substances; Z91.048 Other nonmedicinal substance allergy status

== ENCOUNTER → 2020-06-22 | Outpatient (CLI) | payer MEDICARE ==
[~2020-06-22] MED LIST changes: -NS 1,000 ML IV ONE; +PROHANCE 279.3MG/ML 15ML VIAL As Ordered ONE
--- NOTE | 2020-06-22 17:07 | REP ---
INDICATION: DIFFUSE CYSTIC MASTOPATHY OF UNSPECIFIED BREAST. Previous needle biopsy right breast 2018. Positive family history of premenopausal breast cancer. Dense breast tissue mammographically. COMPARISON: Comparison breast MRI study April 06, 2018. Comparison sonography April 10, 2018 and right breast mammography post biopsy April 14, 2018. TECHNIQUE: Three Zhane MRI imaging was performed with a dedicated breast coil. Axial, coronal, and sagittal T1 and T2 weighted scans were obtained with and without fat saturation in the usual fashion. The study includes dynamically acquired post gadolinium-enhanced imaging with image subtraction. Maximum intensity projection and multi planar reformation imaging is included as well. This study is interpreted with the aid of Mind[employer] Rx, an FDA approved computer aided detection (CAD) software program, on a dedicated breast MRI workstation. The gadolinium enhancement dose is 11 mL of intravenous ProHance. FINDINGS: There is a extensive amount of fibroglandular tissue bilaterally corresponding with the mammographic pattern. There is marked bilateral and symmetrical background parenchymal enhancement. There is no evidence of axillary lymphadenopathy. There are mildly dilated retroareolar breast ducts bilaterally. There is a low T2 intermediate T1 signal intensity cyst in the left breast laterally at approximately 2-3 o'clock anterior 3rd measuring 1.4 cm in diameter. This is unchanged from the 2019 study. The previously noted enhancing nodule in the inferior aspect of the right breast which was biopsied under ultrasound guidance in 2019 has regressed. There is a focal magnetic field susceptibility artifact at this location corresponding to the marker clip placed at the time of biopsy. High-resolution pre and post-contrast T1 and T2 weighted scans show no suspicious morphologic abnormality in either breast. Dynamically acquired sequential postcontrast images show no suspicious area of enhancement and washout kinetics in either breast to suggest malignancy. Subtraction images show no additional abnormality. IMPRESSION: BI-RADS category 2 benign bilateral breast MRI findings. Extensive fibrocystic changes. Patients whose estimated lifetime breast cancer risk assessment is greater than 20% merit annual screening breast MRI scanning in addition to screening mammography. <Electronically signed by Bony Brenner > 06/22/20 [id number]
== END ==
LOC: M RAD 11:06
PROVIDERS: ATTEND Physician Assistant
DX: N60.19 Diffuse cystic mastopathy of unspecified breast (principal); Z80.3 Family history of malignant neoplasm of breast
CPT/HCPCS: A9576; C8908